=== PATIENT | male | born 1995 ===

== ENCOUNTER 2023-12-23 22:29 | Emergency (ER) | payer OTHER, SELFPAY ==
[2023-12-23 22:34] VITALS: BP 167/75; PULSE 82; RESP 18; TEMP 36.8; O2SAT 97; BMI 22.3
--- NOTE | 2023-12-23 22:58 | ED.WOUNDLAC ---
HPI - Wound/Laceration General Chief Complaint: Laceration/Wound Stated Complaint: right hand lac/work related Time Seen by Provider: 12/23/23 22:32 Source: patient Mode of arrival: ambulatory Limitations: no limitations History of Present Illness HPI narrative: Patient is a 28-year-old male presenting to emergency department for laceration. He states she cut himself on a metal band well welding. Initially was bleeding quite a bit but bleeding has since stopped. States pain is a 3/10. Laceration is on the dorsal aspect about 2 cm proximal from the base of the 4th digit. States his last tetanus shot was 2 years ago no other concerns noted Review of Systems Narrative: Pertinent systems reviewed and were negative unless stated in HPI Exam Narrative: Exam Narrative: Const: Well-nourished, Well-developed, in no distress Eyes: PERRL, no conjunctival injection, and symmetrical lids HENT: Atraumatic external nose and ears. Moist mucous membranes. MSK:Extremities w/o deformity, Normal Active ROM Skin: Warm, Dry. 1 cm laceration back of right hand about to cm proximal from the base of 4th digit Neuro: Normal Muscle tone, No focal neurological deficits. Psych: Awake, Alert, & Oriented x3. Appropriate mood and affect. Const: Vital Signs, click to edit/add: Vital Signs - 24 hr 12/23/23 22:34 Temperature 98.3 F Pulse Rate [Left P ulse Oximeter] 82 Respiratory Rate 18 Blood Pressure [Ri ght Upper Arm] 167/75 H Pulse Oximetry 97 Oxygen Delivery Me thod Room Air Course Vital Signs Vital signs: Initial Vital Signs Temperature 98.3 F 12/23/23 22:34 Temperature Source Temporal Artery Scan 12/23/23 22:34 Pulse Rate 82 12/23/23 22:34 Respiratory Rate 18 12/23/23 22:34 Blood Pressure 167/75 H 12/23/23 22:34 Blood Pressure Mean 105 12/23/23 22:34 Blood Pressure Position Sitting 12/23/23 22:34 Pulse Oximetry 97 12/23/23 22:34 Oxygen Delivery Method Room Air 12/23/23 22:34 Vital Signs Temperature 98.3 F 12/23/23 22:34 Pulse Rate 82 12/23/23 22:34 Respiratory Rate 18 12/23/23 22:34 Blood Pressure 167/75 H 12/23/23 22:34 Pulse Oximetry 97 12/23/23 22:34 Oxygen Delivery Method Room Air 12/23/23 22:34 Temperature 98.3 F 12/23/23 22:34 Pulse Rate 82 12/23/23 22:34 Respiratory Rate 18 12/23/23 22:34 Blood Pressure 167/75 H 12/23/23 22:34 Pulse Oximetry 97 12/23/23 22:34 Oxygen Delivery Method Room Air 12/23/23 22:34 MDM - Wound/Laceration MDM Narrative Medical decision making narrative: Patient is 28-year-old male with the laceration to the dorsum of the right hand. See procedure note. Tetanus is up-to-date. Initially was knocking give antibiotics with patient wants go back to work and he does wear thick closed with lots of sweating and this does make me concerned about infection risk. I will start him on ciprofloxacin preventatively. Also informed him to keep the area as dry as possible and to keep it covered. He states he understands. Discharge Plan Discharge Clinical Impression: Laceration Patient Disposition: Home, Self-Care Condition: Stable Instructions: Laceration (ED) Additional Instructions: Antibiotics prescribed through [facility]. Is important to keep the area as dry as possible keep it covered while working. The sutures being in place are all risk of infection considering the amount you will sweat in your gloves. Return for re-evaluation if signs of infection start appearing. He will notice some mild redness around the laceration in the morning likely. Follow-up with your primary care provider or urgent care in the next 7 days to have the 3 sutures removed. For next 6 months, once sutures are removed, whenever you go outside put a dab of sunscreen over the laceration site to improve scar appearance. Topical antibiotics are not necessary at this time. Patient can shower but do not submerge the laceration until sutures are removed Stand Alone Forms: My[facility] Info Instructions Procedures Laceration Hand: Name of person performing procedure: Johan Butler Site: hand Side (If applicable): left Size (cm): 1 Description: linear Depth: simple, single layer Local Anesthetic: lidocaine 1% Amount of anesthesia used (mL): 2 Pre-repair: wound explored, irrigated extensively and deep structures intact Skin layer closed with: nylon Size (cm): 4-0 Number of sutures: 3 Technique: simple, interrupted
== END 2023-12-23 23:22 | disposition home or self-care (01) ==
LOC: ED 23:21
PROVIDERS: Emergency Provider Student in an Organized Health Care Education/Training Program
DX: S61.411A Laceration without foreign body of right hand, initial encounter (principal); W26.9XXA Contact with unspecified sharp object(s), initial encounter
CPT/HCPCS: 12001; 99282; 99283